=== PATIENT | female | born 1955 | race Caucasian/White ===

== ENCOUNTER 2017-06-15 02:10 | Emergency (ER) | payer BC ==
[~2017-06-15] VITALS: Ht 160 cm; Wt 60.1 kg
[2017-06-15 02:36] LABS: HEMATOCRIT 37.3 % (36.0-46.0); MCH 28.6 PG (29.0-34.0); MCHC 33.2 G/DL (30.0-36.0); MCV 86.1 FL (83-99); MEAN PLAT.VOLUME 9.9 uM^3 (9.5-12.4); PLATELET COUNT 283 K/uL (156-360); RBC DIS.WIDTH-CV 12.3 % (11.8-14.6); RBC DIS.WIDTH-SD 38.7 % (39-53); RED BLOOD COUNT 4.33 M/uL (3.80-5.20); WHITE BLOOD COUNT 9.4 K/uL (4.1-10.2)
[2017-06-15 02:40] LABS: ADD MIUA? YES; BILIRUBIN NEGATIVE; BLOOD NEGATIVE; COLOR COLORLESS ((YELLOW)); GLUCOSE (STRIP) NEGATIVE; KETONES NEGATIVE; LEUKOCYTES TRACE; NITRITE NEGATIVE; PROTEIN (STRIP) NEGATIVE; SPECIFIC GRAVITY 1.004 (1.000-1.030); UROBILINOGEN 0.2 MG/DL (0.2-1.0)
[2017-06-15 02:47] LABS: BACTERIA RARE /HPF; EPITHELIAL CELLS RARE /HPF; MUCUS NONE SEEN /LPF; RED BLOOD CELLS 0-5 /HPF (0-5); UCUL ADDED? NO; WHITE BLOOD CELLS 0-5 /HPF (0-5)
[2017-06-15 02:48] LABS: CHLORIDE 106 mEq/L (99-109); POTASSIUM 3.8 mEq/L (3.7-5.4); SODIUM 140 mEq/L (136-147)
[2017-06-15 02:50] LABS: GLUCOSE 139 mg/dL (70-99)
[2017-06-15 02:51] LABS: ANION GAP 13 MEQ/L (2-14)
[2017-06-15 02:53] LABS: GFR ESTIMATE (CALCULATED) > 59 mL/min/
[2017-06-15 02:54] LABS: UREA NITROGEN (BUN) 17 mg/dL (9-23)
[2017-06-15 03:02] LABS: TROP-I INTERPRETATION NEGATIVE; TROPONIN-I < 0.01 ng/mL (0.0-0.30)
[2017-06-15 03:27] LABS: TOTAL BILIRUBIN 0.5 mg/dL (0.0-1.0)
[2017-06-15 03:28] LABS: ALKALINE PHOSPHATASE 80 IU/L (3-129)
[2017-06-15 03:30] LABS: DIRECT BILIRUBIN 0.1 mg/dL (0.0-0.3)
[2017-06-15 03:31] LABS: LIPASE 43 U/L (1.0-51.0)
[2017-06-15] MEDS ORDERED: ZOFRAN4 MG PO (04:20)
[2017-06-15 04:30] VITALS: BP 159/75
== END 2017-06-15 04:32 | disposition home or self-care (01) ==
LOC: EME 02:10
DX: K80.20 Calculus of gallbladder without cholecystitis without obstruction (principal); E78.5 Hyperlipidemia, unspecified; E11.9 Type 2 diabetes mellitus without complications; Z91.040 Latex allergy status
CPT/HCPCS: 71020; 76705; 80048; 80076; 81003; 83690; 84484; 85027; 93005; 99281; 99284

== ENCOUNTER 2017-07-15 05:22 | Day surgery (SDC) | payer BC ==
[~2017-07-15] VITALS: Ht 160 cm; Wt 57.6 kg
[~2017-07-15 05:22] MED LIST: CO Q-10100 MG PO; GLUCOPHAGE500 MG PO; LO-DOSE ASPIRIN81 M1 PO; NEURONTIN300 MG PO; PROBIOTIC1 EAC1 PO; RED YEAST RICE600 M1 PO; TYLENOL EXTRA500 MG PO; ZOFRAN4 MG PO
[2017-07-15 05:59] VITALS: BP 144/64
[2017-07-15 06:33] LABS: POINT-OF-CARE METER ID UU14174212
[2017-07-15] MEDS ORDERED: ROXICODONE5 MG PO (09:02)
[2017-07-15] MEDS ORDERED: COLACE100 MG PO (09:02)
[2017-07-15 09:43] LABS: POINT-OF-CARE METER ID UU13113675
[2017-07-15 10:00] VITALS: BP 135/65
[2017-07-15 10:55] VITALS: BP 135/65
[2017-07-15 13:14] VITALS: BP 144/68
== END 2017-07-15 13:35 | disposition home or self-care (01) ==
LOC: SDC 05:22
PROVIDERS: Surgery
PROC: 0FT44ZZ Resection of Gallbladder, Percutaneous Endoscopic Approach (ICD-10-PCS; principal; 2017-07-15)
DX: K80.10 Calculus of gallbladder with chronic cholecystitis without obstruction (principal); E11.9 Type 2 diabetes mellitus without complications; E78.5 Hyperlipidemia, unspecified; M54.30 Sciatica, unspecified side; Z79.84 Long term (current) use of oral hypoglycemic drugs; Z79.82 Long term (current) use of aspirin
CPT/HCPCS: 82948; 88304; C1769; J0131; J1170; J2250; J2405; J2710; J3010; S0074